=== PATIENT | female | born 1950 | race Caucasian/White ===

== ENCOUNTER → 2021-04-28 | Day surgery (SDC) | payer MEDICARE ==
[~2021-04-28] VITALS: Ht 170.2 cm; Wt 66.7 kg
[~2021-04-28] MED LIST: ALLEGRA ALLERG180 MG PO; CLONAZEPAM0.5 MG PO; CRESTOR5 MG PO; FAMOTIDINE40 MG PO; FLOVENT HF120 PUFFS/ INH; NEXIUM20 MG PO; OS-CAL500 MG PO
[2021-04-28 08:38] LABS: HGB 13.4 g/dl (12.5-16.0); MCH 29.3 pg (25.0-31.0); MCHC 32.7 g/dL (32.0-36.0); MCV 89.7 fL (78.0-100.0); MPV 11.1 fL (6.0-9.5); RBC 4.57 M/uL (4.20-5.40); WBC 6.1 K/uL (4.0-10.5)
[2021-04-28 08:51] LABS: ALBUMIN 3.5 g/dL (3.4-5.0); BILIRUBIN - TOTAL 0.2 mg/dL (0.2-1.0); BUN/CREAT RATIO (CALC) 21.7 RATIO; CREATININE 0.6 mg/dL (0.51-0.95); GLOBULIN (CALCULATION) 3.3 g/dL; POTASSIUM 3.9 mmol/L (3.5-5.1); TOTAL PROTEIN 6.8 g/dL (6.4-8.2)
== END | disposition home or self-care (01) ==
LOC: FAS 07:55
PROVIDERS: Surgery
DX: K22.2 Esophageal obstruction (principal); K22.10 Ulcer of esophagus without bleeding; R49.0 Dysphonia; Z96.619 Presence of unspecified artificial shoulder joint; Z87.891 Personal history of nicotine dependence; Z79.82 Long term (current) use of aspirin
CPT/HCPCS: 36415; 80053; C1726; J2704; J7120